=== PATIENT | male | born 1985 | race African-American/Black ===

== ENCOUNTER 2016-09-30 20:06 | Inpatient (IN) | payer OTHER ==
[~2016-09-30] VITALS: Ht 180.3 cm; Wt 103.9 kg
--- NOTE | ~2016-09-30 | HP ---
Unit #: [id number] #: [id number] Patient: KIN PATRICIO [id number] [place] [address] [id number] MR#: [id number] NAME: KIN PATRICIO ROOM: P123 Age: 31 Sex: M Admission Date: 09/30/2016 : 1985 Attending Physician: Sherwin Henning M.D. Admitting Physician: Sherwin Henning M.D. Primary Care Physician: Yogesh Muller Family HISTORY AND PHYSICAL NOTE Kin is a 31 year old who was admitted and discharged within the first 24 hours. He was not seen for an H & P. Dictated by... Meggan Krishnan P.A.-C. for Migue Kovacs/fannie TD: 10/01/2016 21:04 JOB #: [id number] HISTORY AND PHYSICAL Page 1 of 1 X Meggan Krishnan HISTORY AND PHYSICAL
--- NOTE | ~2016-09-30 | PA ---
Unit #: [id number] #: [id number] Patient: KIN PATRICIO [id number] [place] [address] [id number] MR#: [id number] NAME: KIN PATRICIO ROOM: P123 Age: 31 Sex: M Admission Date: 09/30/2016 : 1985 Date of Assessment: 10/01/2016 Attending Physician: Sherwin Henning M.D. Admitting Physician: Sherwin Henning M.D. Primary Care Physician: Yogesh Muller Family PSYCHIATRIC ASSESSMENT IDENTIFYING INFORMATION The patient is a 31-year-old male admitted voicing suicidal ideation. CHIEF COMPLAINT None given. INFORMANT(S) Patient and chart, reliability is good. HISTORY OF PRESENT ILLNESS The patient is a 31-year-old male discharged from senior care in late August. The patient reports that he has been feeling more depressed and anxious. He reports that he feels as though he has been institutionalized much of his life and was in fact inpatient at this facility as a youngster for some time under the care of Dr. Bowen. He is currently on no psychotropic medications. Earlier today, the patient was seen by representatives of "[facility]" and he hopes to follow up at that facility. He is currently denying suicidal or homicidal ideation and is requesting discharge citing the chaotic fiore milieu. PAST PSYCHIATRIC HISTORY As above. PAST MEDICAL HISTORY Noncontributory. MEDICATIONS None. ALLERGIES None. FAMILY HISTORY Noncontributory. SOCIAL HISTORY The patient lives with his fiance. He reports that he is presently unemployed. He does report occasional use of cannabis. MENTAL STATUS EXAMINATION Examination at this time reveals the patient to be a well-developed well-nourished heavily tattooed male appearing her stated Unit #: [id number] #: [id number] Patient: KIN PATRICIO age. He is in no apparent physical distress at the time of examination. He is awake, alert, and oriented in all spheres. His mood is euthymic and pleasant, his affect congruent. Speech is generally well coherent. There are no gross deficits in memory or cognition noted. Intelligence is judged to be in the average range based on fund of knowledge. The patient is cooperative throughout the interview. He is currently reporting no suicidal or homicidal ideation or psychotic features. Judgment and insight appear to be intact. ASSETS AND LIABILITIES The patient's assets: Motivation for change. Liabilities: Lack of resources. History of chronic illness. DIAGNOSTIC IMPRESSION 1. Dysthymic disorder. 2. Cannabis use disorder. 3. Antisocial traits versus disorder. TREATMENT PLAN The patient will be discharged today given his wish to follow up with [facility] and denial of suicidal ideation. It is understandable given the chaotic fiore milieu that the patient wishes to leave the hospital at this time, and he does appear to be future oriented with a wish to follow up through the auspices of [facility]. Discharge will be ordered, the details of which will be included in the discharge summary to be dictated shortly. Dictated by... Sherwin Henning M.D. Pinky TD: 10/01/2016 14:05 JOB #: [id number] PSYCHIATRIC ASSESSMENT Page 1 of 1 X Sherwin Henning MD X PSYCHIATRIC ASSESSMENT
--- NOTE | ~2016-09-30 | DS ---
Unit #: [id number] #: [id number] Patient: KIN PATRICIO [id number] [place] [address] [id number] MR#: [id number] NAME: KIN PATRICIO ROOM: [facility] Age: 31 Sex: M Admission Date: 09/30/2016 : 1985 Discharge Date: 10/01/2016 Attending Physician: Sherwin Henning M.D. Primary Care Physician: -[facility] Patients Family DISCHARGE SUMMARY REASON FOR ADMISSION The patient is a 31-year-old male, admitted to the [address] [place] [address] unit complaining of suicidal ideation. HOSPITAL COURSE The patient was admitted to the [address] [place] [address] unit and placed on suicide precautions. He was seen by this physician on the afternoon of 10/01/2016, and at that time, he denied suicidal ideation. He stated that he had spoken with a commercial sales representative from [facility] earlier in the day and hoped to begin services at that facility shortly after discharge. He requested discharge from the hospital citing the chaotic therapeutic milieu on the unit and discharge was ordered. FINAL DIAGNOSES Dysthymic disorder, cannabis use disorder, and antisocial traits versus disorder. DISPOSITION ON DISCHARGE The patient is discharged on no psychotropic or other medications. FOLLOWUP Follow up will take place through the auspices of [facility] and [facility]. PROGNOSIS The patient's prognosis is considered fair. Dictated by... Sherwin Henning M.D. YUAN/raisa TD: 10/01/2016 14:04 JOB #: [id number] Unit #: [id number] #: [id number] Patient: KIN PATRICIO DISCHARGE SUMMARY Page 1 of 1 X Sherwin Henning MD X DISCHARGE SUMMARY
[2016-10-01 09:56] LABS: BASOPHIL% 0.2 % (0-2.5); EOSINOPHIL# 0.1 X10e3 (0-0.7); EOSINOPHIL% 1.1 % (0.0-7.0); HEMATOCRIT 46.9 % (38.0-50.0); HEMOGLOBIN 15.6 gm/dL (13.0-16.0); LYMPHOCYTE# 2.7 X10e3 (1.0-3.5); LYMPHOCYTE% 24.7 % (17.0-45.0); MEAN CELL VOLUME 96.7 FL (83-96); MEAN CORPUSCULAR HEMOGLOBIN 32.3 PG (28-34); MEAN CORPUSCULAR HGB CONC 33.3 g/dL (30-36); MEAN PLATELET VOLUME 9.2 FL (6.5-11.5); MONOCYTE# 0.9 X10e3 (0-1.0); MONOCYTE% 8.2 % (3.0-12.0); NEUTROPHIL# 7.2 X10e3 (1.5-7.1); NEUTROPHIL% 65.8 % (40-75); PLATELET COUNT 198 X10e3 (140-420); RED BLOOD COUNT 4.85 X10e (3.90-5.60); RED CELL DISTRIBUTION WIDTH 12.9 % (11.0-15.5); WHITE BLOOD COUNT 10.9 X10e3 (4.0-10.5)
[2016-10-01 10:07] LABS: DIFF IND NO
[2016-10-01 10:41] LABS: ALBUMIN SERUM 3.9 g/dL (3.5-5.0); BILIRUBIN,TOTAL 0.9 mg/dL (0.2-2.0); BUN/CREATININE RATIO 13.33; CALCIUM SERUM 9.1 mg/dL (8.4-10.2); CREATININE SERUM 0.9 mg/dL (0.6-1.4); GLOM FILT RATE Estimated 133.3 mL/min (>60); POTASSIUM 3.9 mmol/L (3.5-5.1); PROTEIN TOTAL SERUM 6.7 g/dL (6.0-8.3)
== END 2016-10-01 14:45 | disposition home or self-care (01) | DRG 881 ==
LOC: P1S 21:46
PROVIDERS: Specialist
DX: F34.1 Dysthymic disorder (principal); F12.90 Cannabis use, unspecified, uncomplicated; Z72.811 Adult antisocial behavior
CPT/HCPCS: 80053; 85025